=== PATIENT | male | born 1940 | race Caucasian/White ===

== ENCOUNTER 2016-12-03 09:37 | Outpatient (CLI) | payer MEDICARE, OTHER | END 2016-12-03 09:38 | disposition home or self-care (01) | DX: Z71.9 Counseling, unspecified (principal) ==

== ENCOUNTER 2017-02-04 08:00 | Outpatient (CLI) | payer MEDICARE, OTHER | END 2017-02-04 23:59 | DX: R79.9 Abnormal finding of blood chemistry, unspecified (principal); Z12.5 Encounter for screening for malignant neoplasm of prostate; E78.00 Pure hypercholesterolemia, unspecified; Z79.899 Other long term (current) drug therapy | CPT/HCPCS: 36415; 80053; 80061; 84443; 85025; G0103 ==

== ENCOUNTER 2017-03-10 11:51 | Day surgery (SDC) | payer MEDICARE, OTHER ==
[2017-03-10] MEDS ORDERED: LACTATED RINGERS 1,000 ML IV ONE ×2 (12:03→13:31)
[2017-03-10] MEDS ORDERED: fentaNYL 100 MCG/2 ML VIAL IVP ONE (12:46)
[2017-03-10] MEDS ORDERED: KETAMINE 500 MG/10 ML VIAL IVP ONE (12:46)
== END 2017-03-10 11:52 | disposition home or self-care (01) ==
PROC: 0DB68ZX Excision of Stomach, Via Natural or Artificial Opening Endoscopic, Diagnostic (ICD-10-PCS; principal; 2017-03-10 13:15)
DX: K22.70 Barrett's esophagus without dysplasia (principal); K21.9 Gastro-esophageal reflux disease without esophagitis; K44.9 Diaphragmatic hernia without obstruction or gangrene; I10 Essential (primary) hypertension; K29.70 Gastritis, unspecified, without bleeding; Z80.1 Family history of malignant neoplasm of trachea, bronchus and lung; Z80.8 Family history of malignant neoplasm of other organs or systems; Z87.891 Personal history of nicotine dependence; Z79.82 Long term (current) use of aspirin
CPT/HCPCS: 43239; J7120

== ENCOUNTER 2017-11-10 15:07 | Emergency (ER) | payer MEDICARE, OTHER ==
[2017-11-10 15:31] LABS: BASOPHILS # (AUTO) 0.1 10^3/uL (0.0-0.1); BASOPHILS % (AUTO) 1.5 %; EOSINOPHILS # (AUTO) 0.1 10^3/uL (0.0-0.7); EOSINOPHILS % (AUTO) 1.3 %; HGB - HEMOGLOBIN 16.3 g/dL (14.0-18.0); LYMPHOCYTES # (AUTO) 2.2 10^3/uL (1.5-3.5); LYMPHOCYTES % (AUTO) 24.5 %; MEAN CORPUSCULAR HEMOGLOBIN 31.1 pg (27.0-31.0); MEAN CORPUSCULAR HGB CONC 34.9 g/dL (32.0-36.0); MONOCYTES # (AUTO) 0.9 10^3/uL (0.0-1.0); MONOCYTES % (AUTO) 9.9 %; NEUTROPHILS # (AUTO) 5.5 10^3/uL (1.5-6.6); NEUTROPHILS % (AUTO) 62.8 %; PLT - PLATELET COUNT 268 10^3/uL (130-450); RED BLOOD COUNT 5.26 10^6/uL (4.70-6.10); RED CELL DISTRIBUTION WIDTH 13.6 % (12.0-15.0); WHITE BLOOD COUNT 8.8 x10^3/uL (4.8-10.8)
[2017-11-10 15:41] LABS: ALBUMIN 4.4 g/dL (3.2-5.5); ALBUMIN/GLOBULIN RATIO 1.2 (1.0-2.2); BILIRUBIN,TOTAL 0.8 mg/dL (0.2-1.0); CALCIUM 9.2 mg/dL (8.5-10.3); CREATININE 1.1 mg/dL (0.6-1.2)
--- NOTE | 2017-11-10 16:00 | ED Physician Documentation ---
PD HPI CHEST PAIN - Stated complaint Stated Complaint: SOA, ABN EKG - Chief complaint Chief Complaint: Resp - History obtained from History obtained from: Patient - History of Present Illness Timing - onset: Other (He notes that for the last year he has had some exertional dyspnea and he is not able to hike as much as normal, he also feels short of breath if he leans forward. He thought this was probably his hiatal hernia for which he is treated with Nexium and ranitidine. He went to his doctor's today an EKG was done with a right bundle branch block and left anterior fascicular block and he was referred here. He has no chest pain. Symptoms are not acute today.) Review of Systems Ten Systems: 10 systems reviewed and negative Constitutional: denies: Fever, Chills Throat: denies: Dental pain / toothache, Sore throat Cardiac: denies: Chest pain / pressure, Palpitations, Pedal edema, Calf pain Respiratory: denies: Cough, Hemoptysis, Wheezing PD PAST MEDICAL HISTORY - Past Medical History Past Medical History: Yes Cardiovascular: Hypertension, Other Respiratory: None Endocrine/Autoimmune: None GI: GERD : Frequency HEENT: None, Macular degeneration Psych: None Musculoskeletal: Osteoarthritis, Chronic back pain Derm:  - Past Surgical History General: Colonoscopy, EGD Ortho: Spine surgery HEENT: Cataracts, Tonsil/Adenoidectomy - Present Medications Home Medications: Ambulatory Orders Medication Instructions Recorded Confirmed Esomeprazole [NexIUM] 40 mg ORAL DAILY 01/15/16 11/10/17 Hydrochlorothiazide 25 mg ORAL DAILY 01/15/16 11/10/17 raNITIdine [Zantac] 1 - 2 tab ORAL DAILY 01/15/16 11/10/17 Aspirin [Adult Low Dose Aspirin EC] 81 mg PO DAILY 03/09/17 11/10/17 Potassium Chloride [Klor-Con 10] 10 meq PO DAILY 03/10/17 11/10/17 Sertraline [Zoloft] 50 mg PO DAILY 03/10/17 11/10/17 Vardenafil HCl [Levitra] 20 mg PO ONCE 03/10/17 11/10/17 Sucralfate [Carafate] 1 gm PO QID #80 tablet 11/10/17 - Allergies Allergies/Adverse Reactions: Allergies Allergy/AdvReac Type Severity Reaction Status Date / Time No Known Drug Allergies Allergy Verified 03/10/17 12:03 - Social History Does the pt smoke?: No Smoking Status: Never smoker PD ED PE NORMAL - Vitals Vital signs reviewed: Yes - General General: Alert and oriented X 3, No acute distress - HEENT HEENT: PERRL, EOMI - Neck Neck: Supple, no meningeal sign, No bony TTP - Cardiac Cardiac: RRR (With frequent extrasystoles), No murmur - Respiratory Respiratory: No respiratory distress, Clear bilaterally - Abdomen Abdomen: Non tender - Derm Derm: Normal color, Warm and dry - Extremities Extremities: No edema, No calf tenderness / cord - Neuro Neuro: Alert and oriented X 3, Normal speech - Psych Psych: Normal mood, Normal affect Results - Vitals Vitals: Vital Signs - 24 hr 11/10/17 15:12 Temperature 36.3 C L Heart Rate 62 Respiratory 18 Rate Blood Pressure 161/95 H O2 Saturation 98 Oxygen O2 Source Room air - EKG (time done) 1520 Rate: Rate (enter#) (77) Rhythm: NSR [place]: Normal Intervals: Normal MO, RBBB, Other (LAFB) Ischemia: Normal ST segments. No: ST elevation c/w ischemia Computer interpretation: Agree with computer - Labs Labs: Laboratory Tests 11/10/17 11/10/17 11/10/17 15:20 15:20 15:20 WBC 8.8 RBC 5.26 Hgb 16.3 Hct 46.8 MCV 89.0 MCH 31.1 H MCHC 34.9 RDW 13.6 Plt Count 268 MPV 8.0 Neut # 5.5 Lymph # 2.2 Woodson # 0.9 Eos # 0.1 Baso # 0.1 Absolute Nucleated RBC 0.00 Nucleated RBC % 0.1 Sodium 139 Potassium 3.4 L Chloride 102 Carbon Dioxide 25 Anion Gap 12.0 BUN 30 H Creatinine 1.1 Estimated GFR (MDRD) 65 L Glucose 100 Calcium 9.2 Total Bilirubin 0.8 AST 35 ALT 34 Alkaline Phosphatase 61 Troponin I < 0.04 Total Protein 8.0 Albumin 4.4 Globulin 3.6 Albumin/Globulin Ratio 1.2 Lipase 16 L PD MEDICAL DECISION MAKING - ED course ED course: 77-year-old gentleman with chronic dyspnea who saw his doctor today and on evaluation had an abnormal EKG although it does not look ischemic per se. Workup in the emergency department consisting of cardiac enzymes, basic labs and chest x-ray were without remarkable findings. He is advised to follow-up with his physician for evaluation for potential echocardiogram and/or stress testing. Departure - Departure Disposition: 01 Home, Self Care Clinical Impression: Dyspnea Qualifiers: Dyspnea type: dyspnea on exertion Qualified Code(s): R06.09 - Other forms of dyspnea Condition: Good Record reviewed to determine appropriate education?: Yes Instructions: ED Dyspnea Shortness of Breath Prescriptions: Sucralfate [Carafate] 1 gm PO QID #80 tablet Comments: Add the Carafate to your usual medications for potential hiatal hernia issues, but do follow-up with your physician as there is other testing to be done that cannot be ordered from the emergency department including an echocardiogram and a stress test. Return if worse. Your blood pressure was elevated today on check into the emergency department. This does not mean that you have hypertension, it is a common phenomenon to come to the emergency department and have elevated blood pressure. I recommend that you see your primary care physician within the week to have it rechecked when you are feeling better.
[2017-11-10 16:25] VITALS: BP 134/92
--- NOTE | 2017-11-10 16:32 | XRAY Report ---
EXAM: CHEST RADIOGRAPHY EXAM DATE: 11/10/2017 04:10 PM. CLINICAL HISTORY: Dyspnea. COMPARISON: 12/16/2008. TECHNIQUE: 2 views. FINDINGS: Lungs/Pleura: No focal opacities evident. No pleural effusion. No pneumothorax. Normal volumes. Mediastinum: Heart and mediastinal contours are unremarkable. Other: None. IMPRESSION: No evidence for acute cardiopulmonary process. [facility] Referring Provider Line: [phone] SITE ID: [id number]
== END 2017-11-10 16:25 | disposition home or self-care (01) ==
LOC: ED 15:07
DX: R06.00 Dyspnea, unspecified (principal); I45.2 Bifascicular block; I10 Essential (primary) hypertension
CPT/HCPCS: 36415; 71046; 80053; 83690; 84484; 85025; 93005; 99283

== ENCOUNTER 2017-11-10 16:30 | Outpatient (CLI) | payer MEDICARE, OTHER | END 2017-11-10 16:31 | disposition home or self-care (01) | LOC: LAB.R 16:30 | PROVIDERS: ATTEND Physician Assistant Medical | DX: R21 Rash and other nonspecific skin eruption (principal) | CPT/HCPCS: 81599 ==

== ENCOUNTER 2018-01-16 08:00 | Outpatient (CLI) | payer MEDICARE, OTHER ==
[2018-01-16 12:34] LABS: BASOPHILS # (AUTO) 0.1 10^3/uL (0.0-0.1); EOSINOPHILS # (AUTO) 0.2 10^3/uL (0.0-0.7); HGB - HEMOGLOBIN 15.2 g/dL (14.0-18.0); LYMPHOCYTES # (AUTO) 2.3 10^3/uL (1.5-3.5); MEAN CORPUSCULAR HEMOGLOBIN 31.1 pg (27.0-31.0); MEAN CORPUSCULAR HGB CONC 34.2 g/dL (32.0-36.0); MEAN CORPUSCULAR VOLUME 90.8 fL (80.0-94.0); MEAN PLATELET VOLUME 8.7 fL (7.4-11.4); MONOCYTES # (AUTO) 0.8 10^3/uL (0.0-1.0); NEUTROPHILS # (AUTO) 3.7 10^3/uL (1.5-6.6); PLT - PLATELET COUNT 226 10^3/uL (130-450); RED BLOOD COUNT 4.88 10^6/uL (4.70-6.10); RED CELL DISTRIBUTION WIDTH 13.7 % (12.0-15.0); WHITE BLOOD COUNT 7.1 x10^3/uL (4.8-10.8)
[2018-01-16 12:46] LABS: ALBUMIN/GLOBULIN RATIO 1.3 (1.0-2.2); ALKALINE PHOSPHATASE 52 IU/L (42-121); ALT ALANINE AMINOTRANSFERASE 22 IU/L (10-60); AST ASPARTATE AMINOTRANSFERASE 22 IU/L (10-42); BUN - BLOOD UREA NITROGEN 20 mg/dL (6-20); CALCIUM 8.8 mg/dL (8.5-10.3); CARBON DIOXIDE - CO2 25 mmol/L (21-32); CHLORIDE 104 mmol/L (101-111); CHOL/HDL RATIO 2.7 (<5.0); CHOLESTEROL 110 mg/dL; CREATININE 1.1 mg/dL (0.6-1.2); GFR - MDRD 65 (>89); GLUCOSE 99 mg/dL (70-100); HDL CHOLESTEROL 41 mg/dL; LDL CHOLESTEROL,CALCULATED 52 mg/dL; LDL/HDL RATIO 1.3 (<3.6); SODIUM 137 mmol/L (135-145); TOTAL PROTEIN 7.2 g/dL (6.7-8.2); VLDL CHOLESTEROL 17 mg/dL
== END 2018-01-16 23:59 | disposition home or self-care (01) ==
LOC: LAB.WCP 08:00
PROVIDERS: ATTEND Physician Assistant Medical
DX: Z51.81 Encounter for therapeutic drug level monitoring (principal); E78.00 Pure hypercholesterolemia, unspecified; Z12.5 Encounter for screening for malignant neoplasm of prostate; Z79.899 Other long term (current) drug therapy; I10 Essential (primary) hypertension
CPT/HCPCS: 36415; 80053; 80061; 84443; 85025; G0103; 83721; 84153

== ENCOUNTER 2018-07-07 15:53 | Outpatient (CLI) | payer MEDICARE, OTHER ==
--- NOTE | 2018-07-07 17:35 | Ultrasound Report ---
Reason: HEPATIC MASS Procedure Date: 07/07/2018 Accession Number: [id number] / [id number] Procedure: US - Abdomen Limited CPT Code: FULL RESULT: EXAM: ABDOMEN ULTRASOUND LIMITED, RUQ EXAM DATE: 07/07/2018 04:25 PM. CLINICAL HISTORY: HEPATIC MASS. COMPARISON: CT abdomen/pelvis 03/20/2009. Abdominal ultrasound 02/28/2009 TECHNIQUE: Real-time scanning was performed with static images obtained. FINDINGS: Liver: Mildly inhomogeneous, increased echogenicity, suggesting diffuse fatty infiltration.There is a discrete anechoic structure consistent with cyst measuring 9 x 9 x 9 mm at the lateral right hepatic lobe, probably stable from prior. No other discrete liver mass is identified. Liver measures 13.0 cm craniocaudally. Main portal vein flow: Hepatopetal. Gallbladder: Not well evaluated on the images provided. Biliary System: Common bile duct measures 2.3 mm. No intrahepatic ductal dilatation. Pancreas: Not well evaluated on the images provided. Right Kidney: Not well evaluated on the images provided. Other: IMPRESSION: 1. Probable fatty liver with 9 mm right hepatic lobe cyst which is probably stable from the comparison exams. No other discrete liver mass is identified. If clinical concern persists, consider correlation with liver mass protocol CT/MR. [facility]
== END 2018-07-07 15:54 | disposition home or self-care (01) ==
LOC: DI 15:53
PROVIDERS: ATTEND Family Medicine
DX: K76.89 Other specified diseases of liver (principal)
CPT/HCPCS: 76705

== ENCOUNTER 2019-04-11 14:20 | Outpatient (CLI) | payer MEDICARE, OTHER ==
[2019-04-11 18:54] LABS: BASOPHILS % (AUTO) 0.5 %; EOSINOPHILS # (AUTO) 0.1 10^3/uL (0.0-0.7); EOSINOPHILS % (AUTO) 0.7 %; HGB - HEMOGLOBIN 15.9 g/dL (14.0-18.0); LYMPHOCYTES # (AUTO) 1.6 10^3/uL (1.5-3.5); LYMPHOCYTES % (AUTO) 18.6 %; MEAN CORPUSCULAR HGB CONC 33.4 g/dL (32.0-36.0); MEAN CORPUSCULAR VOLUME 92.8 fL (80.0-94.0); MEAN PLATELET VOLUME 8.2 fL (7.4-11.4); MONOCYTES # (AUTO) 0.7 10^3/uL (0.0-1.0); MONOCYTES % (AUTO) 8.2 %; NEUTROPHILS # (AUTO) 6.2 10^3/uL (1.5-6.6); PLT - PLATELET COUNT 252 10^3/uL (130-450); RED BLOOD COUNT 5.12 10^6/uL (4.70-6.10); RED CELL DISTRIBUTION WIDTH 14.2 % (12.0-15.0); WHITE BLOOD COUNT 8.6 x10^3/uL (4.8-10.8)
[2019-04-11 19:36] LABS: ALBUMIN 4.5 g/dL (3.2-5.5); ALBUMIN/GLOBULIN RATIO 1.3 (1.0-2.2); BILIRUBIN,TOTAL 1.2 mg/dL (0.2-1.0); CALCIUM 9.3 mg/dL (8.5-10.3); CREATININE 0.9 mg/dL (0.6-1.2); MAGNESIUM 2.4 mg/dL (1.7-2.8); TOTAL PROTEIN 8.1 g/dL (6.7-8.2)
== END 2019-04-11 14:21 | disposition home or self-care (01) ==
LOC: LAB.WCP 14:20
PROVIDERS: ATTEND Family Medicine
DX: R25.2 Cramp and spasm (principal); R06.09 Other forms of dyspnea; I27.20 Pulmonary hypertension, unspecified; I10 Essential (primary) hypertension
CPT/HCPCS: 36415; 80053; 83735; 83880; 84443; 85025

== ENCOUNTER 2019-04-13 07:36 | Outpatient (CLI) | payer MEDICARE, OTHER | END 2019-04-13 07:37 | disposition home or self-care (01) | LOC: DI 07:36 | PROVIDERS: ATTEND Family Medicine | DX: I51.9 Heart disease, unspecified (principal) | CPT/HCPCS: 93306 ==

== ENCOUNTER 2019-05-09 12:39 | Day surgery (SDC) | payer MEDICARE, OTHER ==
[2019-05-09] MEDS ORDERED: LACTATED RINGERS 1,000 ML IV ONE (12:50)
[2019-05-09] MEDS ORDERED: fentaNYL 250 MCG/5 ML VIAL IVP ONE (14:29)
[2019-05-09] MEDS ORDERED: MIDAZOLAM 2 MG/2 ML VIAL IVP ONE (14:29)
[2019-05-09] MEDS ORDERED: LIDO GARGLE 30 ML BOTTLE ONE (14:29)
[2019-05-09] MEDS ORDERED: LIDO GARGLE 30 ML BOTTLE PO ONE (14:43)
[2019-05-09 15:59] VITALS: BP 107/63
== END 2019-05-09 12:40 | disposition home or self-care (01) ==
LOC: SDS 12:39
PROVIDERS: ATTEND Surgery
PROC: 0DB68ZX Excision of Stomach, Via Natural or Artificial Opening Endoscopic, Diagnostic (ICD-10-PCS; 2019-05-09)
PROC: 0DB38ZX Excision of Lower Esophagus, Via Natural or Artificial Opening Endoscopic, Diagnostic (ICD-10-PCS; 2019-05-09)
PROC: 0DB98ZX Excision of Duodenum, Via Natural or Artificial Opening Endoscopic, Diagnostic (ICD-10-PCS; principal; 2019-05-09 13:15)
DX: K22.70 Barrett's esophagus without dysplasia (principal); K21.9 Gastro-esophageal reflux disease without esophagitis; K29.70 Gastritis, unspecified, without bleeding; K44.9 Diaphragmatic hernia without obstruction or gangrene; K40.20 Bilateral inguinal hernia, without obstruction or gangrene, not specified as recurrent; Z87.891 Personal history of nicotine dependence; K29.60 Other gastritis without bleeding
CPT/HCPCS: 43239; A9270; J3010; J7120

== ENCOUNTER 2020-05-07 08:00 | Outpatient (CLI) | payer MEDICARE, OTHER ==
[2020-05-07 13:15] LABS: BILIRUBIN,URINE NEGATIVE (NEGATIVE); GLUCOSE, URINE (UA) NEGATIVE (NEGATIVE); KETONES,URINE (UA) TRACE mg/dL (NEGATIVE); LEUKOCYTE ESTERASE, URINE NEGATIVE (NEGATIVE); NITRITE,URINE NEGATIVE (NEGATIVE); OCCULT BLOOD,URINE NEGATIVE (NEGATIVE); PH,URINE 5.5 PH (5.0-7.5); PROTEIN,URINE NEGATIVE (NEGATIVE); UROBILINOGEN,URINE 0.2 (NORMAL) E.U./dL (NORMAL)
[2020-05-07 13:19] LABS: CLARITY,URINE CLEAR (CLEAR)
[2020-05-07 19:16] LABS: BASOPHILS # (AUTO) 0.1 10^3/uL (0.0-0.1); EOSINOPHILS # (AUTO) 0.1 10^3/uL (0.0-0.7); EOSINOPHILS % (AUTO) 1.2 %; HGB - HEMOGLOBIN 14.9 g/dL (14.0-18.0); LYMPHOCYTES # (AUTO) 1.5 10^3/uL (1.5-3.5); LYMPHOCYTES % (AUTO) 25.2 %; MEAN CORPUSCULAR HEMOGLOBIN 31.1 pg (27.0-31.0); MEAN CORPUSCULAR HGB CONC 32.5 g/dL (32.0-36.0); MEAN CORPUSCULAR VOLUME 95.6 fL (80.0-94.0); MEAN PLATELET VOLUME 10.1 fL (7.4-11.4); MONOCYTES # (AUTO) 0.5 10^3/uL (0.0-1.0); NEUTROPHILS # (AUTO) 3.8 10^3/uL (1.5-6.6); NEUTROPHILS % (AUTO) 63.3 %; PLT - PLATELET COUNT 251 10^3/uL (130-450); RED BLOOD COUNT 4.79 10^6/uL (4.70-6.10); RED CELL DISTRIBUTION WIDTH 13.3 % (12.0-15.0)
[2020-05-07 19:49] LABS: ALBUMIN 4.4 g/dL (3.2-5.5); ALBUMIN/GLOBULIN RATIO 1.5 (1.0-2.2); BILIRUBIN,TOTAL 1.6 mg/dL (0.2-1.0); CALCIUM 8.8 mg/dL (8.5-10.3); TOTAL PROTEIN 7.4 g/dL (6.7-8.2)
== END 2020-05-07 23:59 | disposition home or self-care (01) ==
LOC: LAB.WCP 08:00
PROVIDERS: ATTEND Family Medicine
DX: I10 Essential (primary) hypertension (principal); G62.9 Polyneuropathy, unspecified
CPT/HCPCS: 36415; 80053; 81003; 83883; 84443; 85025